=== PATIENT | male | born 1960 | race Caucasian/White ===

== ENCOUNTER 2022-02-24 15:29 | Emergency (ER) | payer OTHER ==
[~2022-02-24] VITALS: Ht 175.3 cm; Wt 81.0 kg
[2022-02-24 15:37] VITALS: BP 140/85
== END 2022-02-24 17:37 | disposition left against medical advice (07) ==
LOC: ER 15:29
DX: Z53.21 Procedure and treatment not carried out due to patient leaving prior to being seen by health care provider (principal)